=== PATIENT | male | born 1995 | race Caucasian/White ===

== ENCOUNTER 2019-03-30 12:35 | Emergency (ER) | payer OTHER ==
[~2019-03-30] VITALS: Ht 170.2 cm; Wt 86.0 kg
[2019-03-30] MEDS ORDERED: AUGM875T28 PO (15:25)
[2019-03-30] MEDS ORDERED: AUGMENTIN 875 MG TAB PO ONE (15:30)
[2019-03-30] MEDS ORDERED: IBUPROFEN 800 MG TAB PO ONE (15:30)
[2019-03-30 15:31] VITALS: BP 141/83
== END 2019-03-30 15:32 | disposition home or self-care (01) ==
LOC: M ED 12:35
DX: H66.91 Otitis media, unspecified, right ear (principal)